=== PATIENT | male | born 1945 | race Caucasian/White ===

== ENCOUNTER 2017-10-12 12:00 | Inpatient (IN) | payer MEDICARE ==
[~2017-10-12] VITALS: Ht 180.3 cm; Wt 99.3 kg
[2017-11-10] MEDS ORDERED: METO50TA PO (11:58)
[2017-11-10] MEDS ORDERED: FURO20TA PO (11:58)
[2017-11-10] MEDS ORDERED: TAMS0.4C4 PO (11:58)
[2017-11-10] MEDS ORDERED: ATOR40TA16 PO (11:58)
[2017-11-10] MEDS ORDERED: LISI-519 PO (11:58)
[2017-11-10] MEDS ORDERED: ASPI325T27 PO (11:58)
[2017-11-11] MEDS ORDERED: VANCOMYCIN 1000 MG/NS 250 ML (for <70 kg) IV SCH ×2 (11:15)
[2017-11-11] MEDS ORDERED: SODIUM CHLORID 0.9% 500 ML IV PRN (11:15)
[2017-11-11] MEDS ORDERED: LACTATED RINGER'S 1000 ML IV PRN (11:15)
[2017-11-11] MEDS ORDERED: CHLORHEXIDINE GLUCONATE 2 % 1 PACK (2 CLOTHS) TOPICAL PRN (11:15)
[2017-11-11] MEDS ORDERED: POVIDONE IODINE 7.5% SCRUB 118 ML BOTTLE TOPICAL SCH (11:15)
[2017-11-11] MEDS ORDERED: POVIDONE IODINE 5% (ANTISEPSIS KIT) 4 APPLICATIONS EACH NARE PRN (11:15)
[2017-11-11] MEDS ORDERED: ceFAZolin 2 GM PREMIX 50 ML IV SCH (11:15)
[2017-11-11] MEDS ORDERED: METOPROLOL TARTRATE 25 MG TAB PO PRN (11:15)
[2017-11-11 11:43] LABS: AUTOMATED NEUTROPHIL # 4.4 TH/MM3 (1.8-7.7); BASOPHIL % 0.6 % (0.0-2.0); EOSINOPHIL # 0.6 TH/MM3 (0-0.4); EOSINOPHIL % 7.2 % (0.0-4.0); HEMATOCRIT 40.6 % (39.0-51.0); HEMO FLAGS DIFF FINAL; LYMPH % 28.2 % (9.0-44.0); LYMPHOCYTE # 2.3 TH/MM3 (1.0-4.8); MEAN CELL VOLUME 99.2 FL (80.0-100.0); MEAN CORPUSCULAR HEMOGLOBIN 35.3 PG (27.0-34.0); MEAN CORPUSCULAR HGB CONC 35.6 % (32.0-36.0); MONO % 8.6 % (0.0-8.0); NEUT % 55.4 % (16.0-70.0); PLATELET COUNT 179 TH/MM3 (150-450); RED BLOOD COUNT 4.09 MIL/MM3 (4.50-5.90); RED CELL DISTRIBUTION WIDTH 13.4 % (11.6-17.2)
[2017-11-11] MEDS ORDERED: PROPOFOL 200 MG/20 ML AMP IV ONE (12:00)
[2017-11-11] MEDS ORDERED: ONDANSETRON HCL 4 MG/2 ML VIAL IV ONE (12:00)
[2017-11-11] MEDS ORDERED: ePHEDrine/NS 25 MG/5 ML SYRINGE IV ONE (12:00)
[2017-11-11] MEDS ORDERED: NEOSTIGMINE 5 MG/5 ML SYRINGE IV PUSH ONE (12:00)
[2017-11-11] MEDS ORDERED: LIDOCAINE HCL 1% PF 5 ML SYRINGE OTHER ONE (12:00)
[2017-11-11] MEDS ORDERED: GLYCOPYRROLATE 1 MG/5 ML SYRINGE IV PUSH ONE (12:00)
[2017-11-11] MEDS ORDERED: ROCURONIUM INJ 50 MG/5 ML SYRINGE IV PUSH ONE (12:00)
[2017-11-11] MEDS ORDERED: GENTAMICIN SULFATE 80 MG/2 ML VIAL ONE (13:19)
[2017-11-11] MEDS ORDERED: KETAMINE HCL 500 MG/5 ML VIAL ONE (13:27)
[2017-11-11] MEDS ORDERED: ACETAMINOPHEN 1000 MG/100 ML 100 ML IV ONE (13:28)
--- NOTE | 2017-11-11 17:42 | RADRPT ---
EXAM DATE/TIME: 11/11/2017 17:21 [place] COMPARISON: No previous studies available for comparison. INDICATIONS : Revision right laminectomy L3/4. Lumbar fusion L3/4. MEDICAL HISTORY : Unobtainable. SURGICAL HISTORY : Unobtainable. ENCOUNTER: Initial ACUITY: 1 day PAIN SCORE: Non-responsive. LOCATION: [facility] FINDINGS: Two view examination was performed intraoperatively. There are bilateral pedicular screws at L3 and L 4 with overall good alignment. CONCLUSION: Interpedicular screws at both L3 and L4 status post fusion. Valente Shannon MD on November 11, 2017 at 17:39 Board Certified Radiologist. This report was verified electronically.
[2017-11-11] MEDS ORDERED: oxyCODONE/ACETAMINOPHEN 5 MG/325 MG TAB PO PRN (17:45)
[2017-11-11] MEDS ORDERED: ALUMINUM/MAGNESIUM/SIMETH 30 ML CUP PO PRN (17:45)
[2017-11-11] MEDS ORDERED: BISACODYL 10 MG SUPP RECTAL PRN (17:45)
[2017-11-11] MEDS ORDERED: MORPHINE SULFATE 30 MG/30 ML PCA IV SCH (17:45)
[2017-11-11] MEDS ORDERED: Post-op Orders (for Pharmacy) XX ONE (17:45)
[2017-11-11] MEDS ORDERED: SOD PHOSPHATE/SOD BIPHOSPHATE (ADULT) ENEMA 133ML PR PRN (17:45)
[2017-11-11] MEDS ORDERED: NALOXONE HCL 0.4 MG/ML AMP IV PUSH PRN (17:45)
[2017-11-11] MEDS ORDERED: ONDANSETRON HCL 4 MG/2 ML VIAL IV PUSH PRN (17:45)
--- NOTE | 2017-11-11 17:54 | PD.OP ---
cc: Alejandro Grey. Operative Report Date of Surgery: Nov 11, 2017 Preoperative Diagnosis: Status post lumbar laminectomy syndrome, L3 4. Recurrent herniated nucleus pulposus L3 4, right, foraminal. Right lumbosacral radiculopathy. Lumbar instability, L3 4 Postoperative Diagnosis: Same Procedure: Revision right lumbar laminectomy L3, L4 with subtotal facet resection L3 4. Posterior spinal fusion, L3 4, lateral transverse process technique. Posterior spinal segmental instrumentation, L3 4. Posterior lateral interbody fusion, L3 4, from the right. Placement of interbody cage, L3 4. Major bone grafting of the lumbar spine Anesthesia: Gen. Surgeon: Alejandro Grey Supersonic Engineer(s): Staff Operation and Findings: EBL: 200 ml INDICATIONS: Is patient is a 72-year-old white male who is approximately 2 years status post lumbar decompression L3 4 by physicians in [place]. The patient had recurrent severe pain into the right leg. Investigative studies shows evidence of significant right L3 nerve root compromise in the foramen from what appears to be a recurrent herniated nucleus pulposis. This patient presents for surgical treatment. There appears be instability at the L3 4 level and instability will be further created because the decompression will involve almost completely removing the facet joint on the right side at that level. Effusion is anticipated for both regions. INSTRUMENTATION: Spineway PROCEDURE: The patient brought to the operating room and anesthetized the supine position. The patient positioned prone on the Donaldo frame on the [place] table. All pressure points are protected. The back was scrubbed with alcohol followed by Hibiclens followed by ChloraPrep and draped sterilely and antibiotics were given within a routine time window. A timeout was done. Lateral radiographic images used to identify the proper level for the procedure. Compared care for the preoperative studies. Skin markings were made anticipating surgical treatment. A right paramedian incision was made. A portion of the previous incision was excised. The lamina and facet joint was exposed. We used a dilating retractor which was positioned over this region. The microscope was rolled into the field for visualization. A high-speed bur was used to take the lamina down and doing a subtotal facet resection. A revision laminectomy to the right was accomplished. There was a high degree of scar tissue related to the. Laminectomy and decompression. The crossing L4 nerve root was densely adherent in scar tissue. We spent almost an hour dissecting this very carefully freeing up the L4 nerve root from below and exposing and away from the disc space. There was some adherence to scar tissue along the lateral recess which was not resectable because of the nature of this combination of fibrosis with the crossing L4 nerve root. The L3 nerve root was completely decompressed as resection of herniated disc was accomplished. The exiting and crossing nerve roots were completely decompressed. A total discectomy was accomplished. The disc space was prepared. All cartilaginous material from the disc space was removed. A combination of demineralized bone matrix and Nucel stem cells were mixed together on the back table.. These were injected into the disc space. The cage was then placed according to technical sales specialist's recommendation and deployed. Position was satisfactory. Additional bone graft was placed into the disc space. The outer edge of the facet joint was identified and prepared. Under fluoroscopic images, a bur was used to gain entrance into the pedicle followed by placement of a blunt probe, an awl and placement of proper length screws. Each screw was charged with electric current there are no abnormal potentials registered in either lower extremity. A proper length martin was fitted and attached and tightened according to technical sales specialist's recommendation. The wound was irrigated copiously. Bone grafting was placed along the lateral gutter in the region of the transverse process across this level. This was closed in layers with #1 Vicryl, 2-0 Vicryl and running intradermal 3-0 Vicryl followed by Steri-Strips and benzoin. On the contralateral side a separate exposure was made. The outer edge of the facet joints were identified. A bur was used to gain entrance into the pedicle followed by placement of a probe and proper length screws. Each screw was charged with electric current and no abnormal potentials registered in either lower extremity. The wound was irrigated copiously. Bone graft placed along the transverse process across this level. It was closed in layers using #1 Vicryl, 2-0 Vicryl and running intradermal 3-0 Vicryl followed by Steri-Strips and benzoin. Intraoperative radiographs were obtained. No complication was appreciated. The patient had a sterile dressing applied. The patient was awakened and taken to recovery room in satisfactory condition. FINDINGS: It was evidence of severe foraminal stenosis to the right side at L3 4. After the decompression, the crossing and exiting nerve roots were completely freed up. We could not appreciate any further nerve root compromise. No complication was appreciated. Alejandro Grey MD Nov 11, 2017 17:54
[2017-11-11] MEDS ORDERED: OXYC1TAB63 PO (17:56)
[2017-11-11] MEDS: LACTATED RINGER'S 1000 ML INJ 1,000 ML IV SCH (18:10)
[2017-11-11] MEDS ORDERED: DO NOT ADM ANY ANTICOAGULANT DRUGS PRN (19:00)
[2017-11-11 19:19] VITALS: BP 111/74; PULSE 58; RESP 18; TEMP 97.9; O2SAT 95
[2017-11-11] MEDS: TAMSULOSIN HCL 0.4 MG CAP PO SCH (19:26)
[2017-11-11] MEDS: ATORVASTATIN 40 MG TAB PO SCH (19:27)
[2017-11-11] MEDS: PCA - TOTAL MG MORPHINE DELIVERED PER SHIFT SCH (19:27)
[2017-11-11] MEDS ORDERED: ZOLPIDEM TARTRATE 5 MG TAB PO PRN (21:00)
[2017-11-11 23:37] VITALS: BP 92/64; PULSE 59; RESP 18; TEMP 96.9; O2SAT 93
[2017-11-12 00:37] VITALS: O2SAT 95
[2017-11-12 04:08] VITALS: BP 107/72; PULSE 72; RESP 18; TEMP 98.3; O2SAT 95
[2017-11-12] MEDS: LACTATED RINGER'S 1000 ML INJ 1,000 ML IV SCH ×3 (05:47→21:39)
[2017-11-12] MEDS: PCA - TOTAL MG MORPHINE DELIVERED PER SHIFT SCH ×3 (05:48→21:39)
[2017-11-12 07:00] LABS: HEMATOCRIT 38.7 % (39.0-51.0)
[2017-11-12 07:02] LABS: REVIEW FLAG FINAL
[2017-11-12 07:45] VITALS: BP 136/72; PULSE 80; RESP 18; TEMP 99.4; O2SAT 92
[2017-11-12] MEDS ORDERED: WALKER WHEELS/F1 MIS (07:56)
--- NOTE | 2017-11-12 07:56 | HHI.DCPOC ---
Discharge Care Plan Diagnosis: (1) Postlaminectomy syndrome (2) Lumbar spinal stenosis Your Health Problems Are: Difficulty with ADL Incision/Drains Swelling Goals to Promote Your Health * To prevent worsening of your condition and complications * To maintain your health at the optimal level Directions to Meet Your Goals Take your medications as prescribed Follow your dietary instruction Follow activity as directed Keep your appointments as scheduled Take your immunizations and boosters as scheduled If your symptoms worsen call your PCP, if no PCP go to Urgent Care Center or Emergency Room Smoking is Dangerous to Your Health. Avoid second hand smoke Call the 24-hour hour crisis hotline for domestic abuse at Randa Puckett Nov 12, 2017 07:56
--- NOTE | 2017-11-12 07:58 | HHI.FF ---
Face to Face Verification Diagnosis: (1) Postlaminectomy syndrome (2) Lumbar spinal stenosis Physical Therapy Gait training, Safety evaluation, Transfer training, bed to chair S/P Spinal Fusion: Gait training with walker, Weight bearing as tolerated, No twisting of torso, No bending Additional Instructions PT 3 days/wk for 1 week. WBAT. OOB w brace for 10-12 weeks. Walker as needed. Nursing RN Days per Week: 3 x Week(s): 1 Dressing Changes: Do not change dressing Additional Instructions Hold dressing changes unless saturated. Vitals assessment. I have seen patient Matt Echeverria on 11/12/17. My clinical findings support the need for the requested home health care services because: Limited ability to care for self High risk of falls I certify that my clinical findings support that this patient is homebound because: Post-op weakness Unsteady gait/balance Randa Puckett Nov 12, 2017 07:58
[2017-11-12] MEDS ORDERED: COMMODE 3-IN-11 MIS (07:59)
--- NOTE | 2017-11-12 07:59 | HHI.DS ---
Discharge Summary Admission Date Nov 11, 2017 at 10:41 Discharge Date: Nov 12, 2017 Admitting Diagnosis see below Diagnosis: (1) Postlaminectomy syndrome Diagnosis: Principal ICD Codes: M96.1 - Postlaminectomy syndrome, not elsewhere classified (2) Lumbar spinal stenosis Diagnosis: Principal ICD Codes: M48.061 - Spinal stenosis, lumbar region without neurogenic claudication Procedures Revisional laminectomy L34, subtotal facet resection, posterior lumbar fusion L34, posterolateral interbody fusion with interbody cage L34, bone graft. Brief History This is a 72 year old male patient..right leg pain.. CBC/BMP: 11/12/17 0611 Significant Findings Laboratory Tests Test 11/11/17 11:25 11/12/17 06:11 Red Blood Count 4.09 MIL/MM3 (4.50-5.90) Mean Corpuscular Hemoglobin 35.3 PG (27.0-34.0) Monocytes (%) (Auto) 8.6 % (0.0-8.0) Eosinophils (%) (Auto) 7.2 % (0.0-4.0) Eosinophils # (Auto) 0.6 TH/MM3 (0-0.4) Hematocrit 38.7 % (39.0-51.0) Hospital Course ..pod#1 percocet for pain. Right leg pain slightly improved... HHC for one week. Pt Condition on Discharge: Stable Discharge Disposition: Disch w/ Home Health Serv Discharge Instructions Diet Instructions: As Tolerated, No Restrictions, High Fiber Diet Activities You Can Perform: Weight Bearing as Estephania, See Additionl Instruction Activities to Avoid: Strenuous Activity Additional Activity Instruc.: Out of bed with brace New Medications: Walker with Front Wheels (Walker with Front Wheels) 1 Mis Mis EA .ROUTE DIRECTED, #1 0 Refills Oxycodone HCl/Acetaminophen (Oxycodone-Acetaminophen 5-325) 5 Mg-325 Mg Tablet 1 TAB PO Q4H PRN for PAIN SCALE 1 TO 5, #50 TAB Continued Medications: Aspirin DR (Aspirin DR) 325 Mg Tabdr 325 MG PO DAILY, TAB 0 Refills Atorvastatin (Atorvastatin) 40 Mg Tab 40 MG PO HS for Cholesterol Management, #30 TAB 0 Refills Furosemide (Furosemide) 20 Mg Tab 20 MG PO DAILY, #30 TAB 0 Refills Lisinopril (Lisinopril) 5 Mg Tab 5 MG PO DAILY for Blood Pressure Management, #30 TAB 0 Refills Metoprolol Tartrate (Metoprolol Tartrate) 50 Mg Tab 50 MG PO DAILY, #30 TAB 0 Refills Tamsulosin (Tamsulosin) 0.4 Mg Cap 0.4 MG PO HS for Manage Prostate Problems, #30 CAP 0 Refills Randa Puckett Nov 12, 2017 07:59
--- NOTE | 2017-11-12 08:10 | PD.ORT.PN ---
Subjective Subjective Remarks No leg pain. Mild to moderate low back pain. Pain medications controlling pain. Objective Vitals Vital Signs Date Time Temp Pulse Resp B/P (MAP) Pulse Ox O2 Delivery O2 Flow Rate FiO2 11/12/17 05:48 18 11/12/17 04:08 98.3 72 18 107/72 (84) 95 11/12/17 00:37 95 Nasal Cannula 2.00 11/11/17 23:37 96.9 59 18 92/64 (73) 93 11/11/17 19:27 18 11/11/17 19:19 97.9 58 18 111/74 (86) 95 11/11/17 19:09 14 11/11/17 19:00 97.7 61 14 135/60 (85) 98 Nasal Cannula 2 11/11/17 18:45 59 14 142/59 (86) 96 Nasal Cannula 2 11/11/17 18:30 56 14 125/60 (81) 95 Nasal Cannula 2 11/11/17 18:15 59 14 116/53 (74) 92 Nasal Cannula 2 11/11/17 18:06 97.7 60 14 124/59 (80) 93 Nasal Cannula 2 I/O 11/11/17 11/11/17 11/11/17 11/12/17 11/12/17 11/12/17 07:00 15:00 23:00 07:00 15:00 23:00 Intake Total 1400 ml 1580 ml Output Total 525 ml 550 ml Balance 875 ml 1030 ml Intake Oral 480 ml IV Total 1100 ml Other 1400 ml Output Urine Total 425 ml 550 ml Estimated Blood Loss 100 ml # Bowel Movements 0 Result Diagram: 11/12/17 0611 Procedures Revisional laminectomy L34, subtotal facet resection, posterior lumbar fusion L34, posterolateral interbody fusion with interbody cage L34, bone graft. Objective Remarks Motor examination right leg over 5. Sensation is almost normal. Low back dressing dry. Moderate low back pain without significant leg pain Assessment & Plan Ortho Post Op Day #: 1 Problem List: (1) Postlaminectomy syndrome ICD Codes: M96.1 - Postlaminectomy syndrome, not elsewhere classified (2) Lumbar spinal stenosis ICD Codes: M48.061 - Spinal stenosis, lumbar region without neurogenic claudication Qualifiers: Qualified Codes: M48.062 - Spinal stenosis, lumbar region with neurogenic claudication Assessment and Plan Lumbar spinal stenosis L3 4, right foraminal. Status post lumbar laminectomy, 2015, [facility], L3 4 Right L3 radiculopathy. Lumbar instability. Surgery: Revision right laminectomy L3 4, subtotal facet resection, posterior spinal fusion, segmental instrumentation, interbody cage, bone grafting. PLAN: Discharge today if able to tolerate getting up and out of bed. DC DISASTER DIRECTOR. [place] for pain. Brace full-time when out of bed. No dressing change. Discharge to home Alejandro Grey MD Nov 12, 2017 08:10
[2017-11-12] MEDS: METOPROLOL TARTRATE 50 MG TAB PO SCH (09:26)
[2017-11-12] MEDS: LISINOPRIL 5 MG TAB PO SCH (09:26)
[2017-11-12] MEDS: FUROSEMIDE 20 MG TAB PO SCH (09:26)
[2017-11-12] MEDS: oxyCODONE/ACETAMINOPHEN 5 MG/325 MG TAB PO PRN ×2 (09:27→21:35)
--- NOTE | 2017-11-12 09:34 | PD.CONS ---
[facility] Consult Requested By Dr. Alejandro Grey Reason for Consult Medical management Primary Care Physician Philippe West MD Diagnoses: History of Present Illness Patient is a 72-year-old gentleman. Who underwent lumbar surgery with Dr. Grey. Tolerated procedure well we have been asked to consult regarding medical management Past medical history includes osteoarthritis, hypertension, hyperlipidemia, coronary artery disease and history of CABG and history of carotid artery surgery We will follow for any other issues that may arise Review of Systems Constitutional: COMPLAINS OF: Fatigue, DENIES: Diaphoretic episodes, Fever, Weight gain, Weight loss, Chills, Dizziness, Change in appetite Endocrine: DENIES: Heat/cold intolerance, Polydipsia, Polyuria Eyes: DENIES: Blurred vision, Diplopia, Eye pain Ears, nose, mouth, throat: DENIES: Tinnitus, Hearing loss, Vertigo, Nasal discharge Respiratory: DENIES: Apneas, Cough, Snoring, Wheezing, Hemoptysis Cardiovascular: DENIES: Chest pain, Palpitations, Syncope, Dyspnea on Exertion Gastrointestinal: DENIES: Abdominal pain, Black stools, Bloody stools Musculoskeletal: COMPLAINS OF: Joint pain, Back pain, DENIES: Muscle aches, Stiffness, Joint Swelling Integumentary: DENIES: Abnormal pigmentation, Nail changes, Pruritus Hematologic/lymphatic: DENIES: Bruising, Lymphadenopathy Immunologic/allergic: DENIES: Eczema, Urticaria Neurologic: DENIES: Headache, Localized weakness, Paresthesias, Seizures, Speech Problems Psychiatric: DENIES: Anxiety, Confusion, Mood changes, Depression, Hallucinations Except as stated in HPI: all other systems reviewed are Neg Past Family Social History Allergies: Coded Allergies: No Known Allergies (Unverified , 11/11/17) Past Medical History Herniated disc and lumbar laminectomy Hypertension Hyperlipidemia Carotid artery disease Coronary artery disease and history of CABG Osteoarthritis BPH Past Surgical History Herniated disc repair lumbar laminectomy Coronary artery bypass graft Carotid endarterectomy Reported Medications Reported Meds & Active Scripts Active Oxycodone-Acetaminophen 5-325 (Oxycodone HCl/Acetaminophen) 5 Mg-325 Mg Tablet 1 Tab PO Q4H PRN Reported Metoprolol Tartrate 50 Mg Tab 50 Mg PO DAILY Tamsulosin (Tamsulosin HCl) 0.4 Mg Cap 0.4 Mg PO HS Furosemide 20 Mg Tab 20 Mg PO DAILY Lisinopril 5 Mg Tab 5 Mg PO DAILY Atorvastatin (Atorvastatin Calcium) 40 Mg Tab 40 Mg PO HS Aspirin DR (Aspirin) 325 Mg Tabdr 325 Mg PO DAILY Active Ordered Medications Current Medications Lactated Ringer's 1,000 ml @ 30 mls/hr Q24H PRN IV SEE LABEL COMMENTS Last administered on 11/11/17 11:30; Start 11/11/17 at 11:15; Stop 11/11/17 at 18 :43; Status DC Sodium Chloride 500 ml @ 30 mls/hr [id number] PRN IV SEE LABEL COMMENTS; Start at 11:15; Stop 11/11/17 at 18:43; Status DC Metoprolol Tartrate (Lopressor) 25 mg ONCOLOGY NAVIGATOR PRN PO SEE LABEL COMMENTS; Start 11/11/17 at 11:15; Stop 11/11/17 at 18:43; Status DC Povidone Iodine (Betadine 5% Antisepsis Kit) 1 applic ONCOLOGY NAVIGATOR PRN EACH NARE SEE LABEL COMMENTS Last administered on 11/11/17 11:30; Start 11/11/17 at 11: 15; Stop 11/11/17 at 18:43; Status DC Chlorhexidine Gluconate (Chlorhexidine 2% Cloth) 3 pack ONCOLOGY NAVIGATOR PRN TOPICAL SEE LABEL COMMENTS Last administered on 11/11/17 11:00; Start 11/11/17 at 11: 15; Stop 11/14/17 at 11:14 Povidone Iodine (Betadine 7.5% Scrub) 1 applic ONCE TOPICAL Last administered on 11/11/17 11:30; Start 11/11/17 at 11:15; Stop 11/14/17 at 11:14 Cefazolin Sodium/ Dextrose 50 ml @ 100 mls/hr ONCOLOGY NAVIGATOR IV Last administered on 11/11/17 15:56; Start 11/11/17 at 11:15; Stop 11/11/17 at 18:44; Status DC Vancomycin HCl 1000 mg/Sodium Chloride 250 ml @ 250 mls/hr ONCOLOGY NAVIGATOR IV Last administered on 11/11/17 13:55; Start 11/11/17 at 11:15; Stop 11/11/17 at 18 :47; Status DC Gentamicin Sulfate (Gentamicin Inj) 160 mg STK-MED ONCE .ROUTE Last administered on 11/11/17 14:58; Start 11/11/17 at 13:19; Stop 11/11/17 at 13 :20; Status DC Ketamine HCl (Ketalar Inj) 500 mg STK-MED ONCE .ROUTE ; Start 11/11/17 at 13:27 ; Stop 11/11/17 at 13:28; Status DC Acetaminophen 100 ml @ As Directed STK-MED ONCE IV ; Start 11/11/17 at 13:28; Stop 11/11/17 at 13:29; Status DC Atorvastatin Calcium (Lipitor) 40 mg HS PO Last administered on 11/11/17 19: 27; Start 11/11/17 at 21:00 Furosemide (Lasix) 20 mg DAILY PO ; Start 11/12/17 at 09:00 Lisinopril (Prinivil) 5 mg DAILY PO ; Start 11/12/17 at 09:00 Metoprolol Tartrate (Lopressor) 50 mg DAILY PO ; Start 11/12/17 at 09:00 Tamsulosin HCl (Flomax) 0.4 mg HS PO Last administered on 11/11/17 19:26; Start 11/11/17 at 21:00 Lactated Ringer's 1,000 ml @ 80 mls/hr [id number] IV Last administered on 05:47; Start 11/11/17 at 17:37 Miscellaneous Information (Post-op Orders (for Pharmacy)) STAT ONCE XX ; Start 11/11/17 at 17:45; Stop 11/11/17 at 18:47; Status DC Cefazolin Sodium 1000 mg/Sodium Chloride 100 ml @ 200 mls/hr Q8H IV Last administered on 11/11/17 23:55; Start 11/12/17 at 00:00; Stop 11/12/17 at 16 :29 Oxycodone/ Acetaminophen (Percocet 5-325 Mg) 1 tab Q4H PRN PO PAIN SCALE 1 TO 5; Start 11/11/17 at 17:45 Oxycodone/ Acetaminophen (Percocet 5-325 Mg) 2 tab Q6H PRN PO PAIN SCALE 6 TO 10; Start 11/11/17 at 17:45 Ondansetron HCl (Zofran Inj) 4 mg Q6H PRN IV PUSH NAUSEA OR VOMITING; Start at 17:45 Docusate Sodium (Colace) 100 mg BID PO ; Start 11/12/17 at 21:00 Al Hydrox/Mg Hydrox/Simethicone (Mag-Al Plus Susp Liq) 30 ml Q6H PRN PO INDIGESTION; Start 11/11/17 at 17:45 Zolpidem Tartrate (Ambien) 5 mg HS PRN PO SLEEP; Start 11/11/17 at 21:00 Bisacodyl (Dulcolax Supp) 10 mg DAILY PRN RECTAL CONSTIPATION; Start 11/11/17 at 17:45 Sodium Biphosphate/ Sodium Phosphate (Fleets Enema (Adult)) 133 ml DAILY PRN HI SEVERE CONSTIPATION; Start 11/11/17 at 17:45 Naloxone HCl (Narcan Inj) 0.4 mg UNSCH PRN IV PUSH RESPIRATORY RATE LESS THAN 10; Start 11/11/17 at 17:45 Morphine Sulfate (Morphine 1 Mg/ ml DESIGN PRINTING MACHINE SETTER) 30 mg UNSCH IV Last administered on t 19:09; Start 11/11/17 at 17:45 DESIGN PRINTING MACHINE SETTER Dosage Infused (Pha) 1 Q8HR .XX Last administered on 11/12/17t 05:48; Start 11/11/17 at 22:00 Miscellaneous Information ALL NURSING DEPARTME... UNSCH PRN .XX SEE LABEL COMMENTS; Start 11/11/17 at 19:00; Stop 11/12/17 at 18:59 Influenza Virus Vaccine (Flu (Quadrivalent) Vaccine Inj) 0.5 ml ONCE ONCE IM ; Start 11/12/17 at 10:00; Stop 11/12/17 at 10:01 Family History Hypertension Social History Denies any tobacco or alcohol or illicits at this time Physical Exam Vital Signs Vital Signs Date Time Temp Pulse Resp B/P (MAP) Pulse Ox O2 Delivery O2 Flow Rate FiO2 11/12/17 07:45 99.4 80 18 136/72 (93) 92 11/12/17 05:48 18 11/12/17 04:08 98.3 72 18 107/72 (84) 95 11/12/17 00:37 95 Nasal Cannula 2.00 11/11/17 23:37 96.9 59 18 92/64 (73) 93 11/11/17 19:27 18 11/11/17 19:19 97.9 58 18 111/74 (86) 95 11/11/17 19:09 14 11/11/17 19:00 97.7 61 14 135/60 (85) 98 Nasal Cannula 2 11/11/17 18:45 59 14 142/59 (86) 96 Nasal Cannula 2 11/11/17 18:30 56 14 125/60 (81) 95 Nasal Cannula 2 11/11/17 18:15 59 14 116/53 (74) 92 Nasal Cannula 2 11/11/17 18:06 97.7 60 14 124/59 (80) 93 Nasal Cannula 2 Physical Exam GENERAL: This is a well-nourished, well-developed patient, in no apparent distress. SKIN: No rashes, ecchymoses or lesions. Cool and dry. HEAD: Atraumatic. Normocephalic. No temporal or scalp tenderness. EYES: Pupils equal round and reactive. Extraocular motions intact. No scleral icterus. No injection or drainage. ENT: Nose without bleeding, purulent drainage or septal hematoma. Throat without erythema, tonsillar hypertrophy or exudate. Uvula midline. Airway patent. NECK: Trachea midline. No JVD or lymphadenopathy. Supple, nontender, no meningeal signs. CARDIOVASCULAR: Regular rate and rhythm without murmurs, gallops, or rubs. S1 and S2 no S3 or S4 RESPIRATORY: Clear to auscultation. Breath sounds equal bilaterally. No wheezes , rales, or rhonchi. GASTROINTESTINAL: Abdomen soft, non-tender, nondistended. No hepato-splenomegaly , or palpable masses. No guarding. MUSCULOSKELETAL: Extremities without clubbing, cyanosis, or edema. No joint tenderness, effusion, or edema noted. No calf tenderness. Negative Homans sign bilaterally. NEUROLOGICAL: Awake and alert. Cranial nerves II through XII intact. Motor and sensory grossly within normal limits. Five out of 5 muscle strength in all muscle groups. Normal speech. Insight and judgment is good mood and behaviors appropriate Lumbar brace in place Laboratory Laboratory Tests Test 11/11/17 11:25 11/12/17 06:11 White Blood Count 8.0 Red Blood Count 4.09 Hemoglobin 14.4 14.0 Hematocrit 40.6 38.7 Mean Corpuscular Volume 99.2 Mean Corpuscular Hemoglobin 35.3 Mean Corpuscular Hemoglobin Concent 35.6 Red Cell Distribution Width 13.4 Platelet Count 179 Mean Platelet Volume 9.7 Neutrophils (%) (Auto) 55.4 Lymphocytes (%) (Auto) 28.2 Monocytes (%) (Auto) 8.6 Eosinophils (%) (Auto) 7.2 Basophils (%) (Auto) 0.6 Neutrophils # (Auto) 4.4 Lymphocytes # (Auto) 2.3 Monocytes # (Auto) 0.7 Eosinophils # (Auto) 0.6 Basophils # (Auto) 0.0 CBC Comment DIFF FINAL Differential Comment Result Diagram: 11/12/17 0611 Imaging Last Impressions Lumbar Spine X-Ray 11/11/17 0000 Signed Impressions: Service Date/Time: October 17:21 - CONCLUSION: Interpedicular screws at both L3 and L4 status post fusion. Valente Shannon MD Assessment and Plan Assessment and Plan Status post lumbar laminectomy syndrome, L3 4. Recurrent herniated nucleus pulposus L3 4, right, foraminal. Right lumbosacral radiculopathy. Lumbar instability, L3 4 Postoperative Diagnosis: Same Procedure: Revision right lumbar laminectomy L3, L4 with subtotal facet resection L3 4. Posterior spinal fusion, L3 4, lateral transverse process technique. Posterior spinal segmental instrumentation, L3 4. Posterior lateral interbody fusion, L3 4, from the right. Placement of interbody cage, L3 4. Major bone grafting of the lumbar spine Hypertension continue on home medications BPH continue on Flomax Hyperlipidemia continue on home meds Coronary artery disease history of CABG stable Carotid artery disease history of carotid endarterectomy A.m. labs if still here tomorrow Continue physical therapy and occupational therapy Code Status Full code Discussed Condition With Discussed with patient and RN Delgado Adam DO Nov 12, 2017 09:34
[2017-11-12] MEDS ORDERED: ACETAMINOPHEN 500 MG CPLT PO PRN (09:45)
[2017-11-12] MEDS ORDERED: INFLUENZA VIRUS VACCINE (QUADRIVALENT) 0.5 ML SYR IM ONE (10:00)
[2017-11-12 12:13] VITALS: BP 102/64; PULSE 57; RESP 18; TEMP 97.5; O2SAT 96
[2017-11-12 15:53] VITALS: BP_SYST 84; BP_SYST 87; BP_DIAS 45; BP_DIAS 60; PULSE 66; RESP 18; TEMP 99.5; O2SAT 96
[2017-11-12 20:00] VITALS: BP 101/52; PULSE 63; RESP 18; TEMP 99.7; O2SAT 95
[2017-11-12] MEDS: TAMSULOSIN HCL 0.4 MG CAP PO SCH (21:34)
[2017-11-12] MEDS: DOCUSATE SODIUM 100 MG CAP PO SCH (21:34)
[2017-11-12] MEDS: ATORVASTATIN 40 MG TAB PO SCH (21:34)
--- NOTE | 2017-11-12 23:23 | EKG ---
Date Performed: 11/11/2017 Time Performed: 13:43:31 PTAGE: 72 years EKG: SINUS BRADYCARDIA WITH FIRST DEGREE AV BLOCK LEFT ANTERIOR FASCICULAR BLOCK POSSIBLE LATERA L MYOCARDIAL INFARCTION , OF INDETERMINATE AGE ABNORMAL ECG NO PREVIOUS TRACING DOCTOR: Messi Hawley Interpretating Date/Time 11/12/2017 23:23:03
[2017-11-13] VITALS: BP 99/61; PULSE 70; RESP 16; TEMP 99.4; O2SAT 96
[2017-11-13] MEDS: PCA - TOTAL MG MORPHINE DELIVERED PER SHIFT SCH (03:46)
[2017-11-13 04:00] VITALS: BP 96/59; PULSE 67; RESP 17; TEMP 99.3; O2SAT 95
[2017-11-13 06:43] LABS: AUTOMATED NEUTROPHIL # 6.9 TH/MM3 (1.8-7.7); BASOPHIL % 0.4 % (0.0-2.0); EOSINOPHIL # 0.3 TH/MM3 (0-0.4); EOSINOPHIL % 2.9 % (0.0-4.0); HEMATOCRIT 37.8 % (39.0-51.0); HEMO FLAGS DIFF FINAL; LYMPH % 12.7 % (9.0-44.0); LYMPHOCYTE # 1.2 TH/MM3 (1.0-4.8); MEAN CELL VOLUME 99.7 FL (80.0-100.0); MEAN CORPUSCULAR HEMOGLOBIN 35.6 PG (27.0-34.0); MEAN CORPUSCULAR HGB CONC 35.7 % (32.0-36.0); MONO % 10.4 % (0.0-8.0); NEUT % 73.6 % (16.0-70.0); PLATELET COUNT 145 TH/MM3 (150-450); RED BLOOD COUNT 3.79 MIL/MM3 (4.50-5.90); RED CELL DISTRIBUTION WIDTH 13.3 % (11.6-17.2); WHITE BLOOD COUNT 9.3 TH/MM3 (4.0-11.0)
[2017-11-13 07:03] LABS: ALT (GPT) 37 U/L (12-78); ANION GAP 8 MEQ/L (5-15); AST (GOT) 106 U/L (15-37); BICARBONATE 25.3 MEQ/L (21.0-32.0); BLOOD UREA NITROGEN 16 MG/DL (7-18); CHLORIDE 105 MEQ/L (98-107); GLOMERULAR FILTRATION RATE 83 ML/MIN (>89); MAGNESIUM 1.9 MG/DL (1.5-2.5); POTASSIUM 3.5 MEQ/L (3.5-5.1); SODIUM (NA) 138 MEQ/L (136-145)
[2017-11-13 07:12] LABS: ALKALINE PHOSPHATASE 55 U/L (45-117); FREE T4 1.33 NG/DL (0.76-1.46); TOTAL BILIRUBIN ADULT 1.3 MG/DL (0.2-1.0)
[2017-11-13 08:00] VITALS: BP 136/95; PULSE 80; RESP 18; TEMP 98.3; O2SAT 96
[2017-11-13 08:22] LABS: HEMOGLOBIN A1a 0.7 %; HEMOGLOBIN A1b 1.7 %; HEMOGLOBIN Ao 85.8 %; HEMOGLOBIN LA1C 2.2 %; HEMOGLOBIN P3 3.8 %
[2017-11-13] MEDS: FUROSEMIDE 20 MG TAB PO SCH (09:14)
[2017-11-13] MEDS: LISINOPRIL 5 MG TAB PO SCH (09:14)
[2017-11-13] MEDS: METOPROLOL TARTRATE 50 MG TAB PO SCH (09:14)
[2017-11-13] MEDS: oxyCODONE/ACETAMINOPHEN 5 MG/325 MG TAB PO PRN (09:14)
[2017-11-13] MEDS: DOCUSATE SODIUM 100 MG CAP PO SCH (09:14)
[2017-11-13 10:14] VITALS: RESP 16
== END 2017-11-13 12:42 | disposition home health service (06) | DRG 460 ==
LOC: HSDI 11-11 10:41 → N06A 11-11 19:09
PROVIDERS: ADMIT Orthopaedic Surgery Orthopaedic Surgery of the Spine; ATTEND Orthopaedic Surgery Orthopaedic Surgery of the Spine
PROC: 0ST20ZZ Resection of Lumbar Vertebral Disc, Open Approach (ICD-10-PCS; 2017-11-11)
PROC: 01NB0ZZ Release Lumbar Nerve, Open Approach (ICD-10-PCS; 2017-11-11)
PROC: 0SG00AJ Fusion of Lumbar Vertebral Joint with Interbody Fusion Device, Posterior Approach, Anterior Column, Open Approach (ICD-10-PCS; principal; 2017-11-11 13:56)
DX: M96.1 Postlaminectomy syndrome, not elsewhere classified (principal); I10 Essential (primary) hypertension; M19.90 Unspecified osteoarthritis, unspecified site; M53.2X6 Spinal instabilities, lumbar region; M51.16 Intervertebral disc disorders with radiculopathy, lumbar region; E78.5 Hyperlipidemia, unspecified; I25.10 Atherosclerotic heart disease of native coronary artery without angina pectoris; N40.0 Benign prostatic hyperplasia without lower urinary tract symptoms; M48.062 Spinal stenosis, lumbar region with neurogenic claudication; Z95.1 Presence of aortocoronary bypass graft
CPT/HCPCS: 72100; 76000; 80053; 83036; 83735; 84100; 84439; 84443; 85014; 85018; 85025; 86850; 86900; 86901; 93005; C1713; J0131; J0690; J1580; J2270; J2405; J2710; J3370; J7050; J7120